=== PATIENT | male | born 1945 | race Caucasian/White ===

== ENCOUNTER 2016-05-15 09:33 | Outpatient (CLI) | payer MEDICARE | END 2016-05-15 09:34 | disposition home or self-care (01) | DX: I48.0 Paroxysmal atrial fibrillation (principal) ==

== ENCOUNTER 2016-05-16 07:36 | Outpatient (CLI) | payer MEDICARE | END 2016-05-16 07:37 | disposition home or self-care (01) | DX: I10 Essential (primary) hypertension (principal); E78.5 Hyperlipidemia, unspecified; E11.9 Type 2 diabetes mellitus without complications ==

== ENCOUNTER 2016-06-19 12:36 | Outpatient (CLI) | payer MEDICARE | END 2016-06-19 12:37 | disposition home or self-care (01) | DX: I48.0 Paroxysmal atrial fibrillation (principal) ==

== ENCOUNTER 2016-07-31 12:39 | Outpatient (CLI) | payer MEDICARE | END 2016-07-31 12:40 | disposition home or self-care (01) | DX: I48.0 Paroxysmal atrial fibrillation (principal) ==

== ENCOUNTER 2016-08-07 08:43 | Outpatient (CLI) | payer MEDICARE | END 2016-08-07 08:44 | disposition home or self-care (01) | DX: E11.9 Type 2 diabetes mellitus without complications (principal); E66.01 Morbid (severe) obesity due to excess calories; I10 Essential (primary) hypertension; E78.5 Hyperlipidemia, unspecified; I48.0 Paroxysmal atrial fibrillation ==

== ENCOUNTER 2016-09-11 12:45 | Outpatient (CLI) | payer MEDICARE | END 2016-09-11 12:46 | disposition home or self-care (01) | DX: I48.0 Paroxysmal atrial fibrillation (principal) ==

== ENCOUNTER 2016-09-19 08:46 | Outpatient (CLI) | payer MEDICARE | END 2016-09-19 08:47 | disposition home or self-care (01) | LOC: LAB.F 08:46 | PROVIDERS: ATTEND Family Medicine | DX: I48.0 Paroxysmal atrial fibrillation (principal) | CPT/HCPCS: 85610 ==

== ENCOUNTER 2016-10-08 12:43 | Outpatient (CLI) | payer MEDICARE | END 2016-10-08 12:44 | disposition home or self-care (01) | LOC: LAB.F 12:43 | PROVIDERS: ATTEND Family Medicine | DX: I48.0 Paroxysmal atrial fibrillation (principal) | CPT/HCPCS: 85610 ==

== ENCOUNTER 2016-10-22 12:53 | Outpatient (CLI) | payer MEDICARE | END 2016-10-22 12:54 | disposition home or self-care (01) | LOC: LAB.F 12:53 | PROVIDERS: ATTEND Family Medicine | DX: I48.0 Paroxysmal atrial fibrillation (principal) | CPT/HCPCS: 85610 ==

== ENCOUNTER 2016-11-04 08:48 | Outpatient (CLI) | payer MEDICARE | END 2016-11-04 08:49 | disposition home or self-care (01) | LOC: LAB.F 08:48 | PROVIDERS: ATTEND Family Medicine | DX: I48.0 Paroxysmal atrial fibrillation (principal) | CPT/HCPCS: 85610 ==

== ENCOUNTER 2016-11-05 07:11 | Outpatient (CLI) | payer MEDICARE ==
[2016-11-05 12:04] LABS: ALBUMIN/GLOBULIN RATIO 1.3 (1.0-2.2); BILIRUBIN,TOTAL 0.8 mg/dL (0.2-1.0); BUN - BLOOD UREA NITROGEN 16 mg/dL (6-20); CALCIUM 9.2 mg/dL (8.5-10.3); CARBON DIOXIDE - CO2 27 mmol/L (21-32); CHLORIDE 102 mmol/L (101-111); CHOL/HDL RATIO 4.4 (<5.0); CHOLESTEROL 120 mg/dL; CREATININE 1.1 mg/dL (0.6-1.2); GFR - MDRD 66 (>89); GLUCOSE 105 mg/dL (70-100); HDL CHOLESTEROL 27 mg/dL; LDL/HDL RATIO 2.5 (<3.6); POTASSIUM 4.2 mmol/L (3.5-5.0); SODIUM 137 mmol/L (135-145); TOTAL PROTEIN 6.9 g/dL (6.7-8.2); TRIGLYCERIDES 123 mg/dL; VLDL CHOLESTEROL 25 mg/dL
[2016-11-05 12:14] LABS: HEMOGLOBIN A1C 0.9 g/dL
== END 2016-11-05 07:12 | disposition home or self-care (01) ==
LOC: LAB.F 07:11
PROVIDERS: ATTEND Family Medicine
DX: E11.9 Type 2 diabetes mellitus without complications (principal); I48.0 Paroxysmal atrial fibrillation; I10 Essential (primary) hypertension; E78.5 Hyperlipidemia, unspecified
CPT/HCPCS: 36415; 80053; 80061; 82043; 83036

== ENCOUNTER 2016-12-04 07:12 | Outpatient (CLI) | payer MEDICARE | END 2016-12-04 07:13 | disposition home or self-care (01) | LOC: LAB.F 07:12 | PROVIDERS: ATTEND Family Medicine | DX: I48.0 Paroxysmal atrial fibrillation (principal) | CPT/HCPCS: 85610 ==

== ENCOUNTER 2016-12-16 09:17 | Outpatient (CLI) | payer MEDICARE | END 2016-12-16 09:18 | disposition home or self-care (01) | LOC: LAB.F 09:17 | PROVIDERS: ATTEND Family Medicine | DX: I48.0 Paroxysmal atrial fibrillation (principal) | CPT/HCPCS: 85610 ==

== ENCOUNTER 2017-01-29 12:34 | Outpatient (CLI) | payer MEDICARE | END 2017-01-29 12:35 | disposition home or self-care (01) | LOC: LAB.F 12:34 | PROVIDERS: ATTEND Family Medicine | DX: I48.0 Paroxysmal atrial fibrillation (principal) | CPT/HCPCS: 85610 ==

== ENCOUNTER 2017-02-04 07:07 | Outpatient (CLI) | payer MEDICARE ==
[2017-02-04 12:30] LABS: CALCIUM 9.4 mg/dL (8.5-10.3); CREATININE 1.1 mg/dL (0.6-1.2); POTASSIUM 3.8 mmol/L (3.5-5.0)
[2017-02-04 12:57] LABS: HEMOGLOBIN A1C 0.96 g/dL
== END 2017-02-04 07:08 | disposition home or self-care (01) ==
LOC: LAB.F 07:07
PROVIDERS: ATTEND Family Medicine
DX: I48.0 Paroxysmal atrial fibrillation (principal); E11.9 Type 2 diabetes mellitus without complications; Z79.01 Long term (current) use of anticoagulants; I10 Essential (primary) hypertension; E78.5 Hyperlipidemia, unspecified
CPT/HCPCS: 36415; 80048; 83036

== ENCOUNTER 2017-03-06 10:36 | Outpatient (CLI) | payer MEDICARE | END 2017-03-06 10:37 | disposition home or self-care (01) | LOC: LAB.F 10:36 | PROVIDERS: ATTEND Family Medicine | DX: I48.0 Paroxysmal atrial fibrillation (principal) | CPT/HCPCS: 85610 ==

== ENCOUNTER 2017-04-17 10:39 | Outpatient (CLI) | payer MEDICARE | END 2017-04-17 10:40 | disposition home or self-care (01) | LOC: LAB.F 10:39 | PROVIDERS: ATTEND Family Medicine | DX: I48.0 Paroxysmal atrial fibrillation (principal) | CPT/HCPCS: 85610 ==

== ENCOUNTER 2017-04-24 09:27 | Outpatient (CLI) | payer MEDICARE | END 2017-04-24 09:28 | disposition home or self-care (01) | LOC: LAB.F 09:27 | PROVIDERS: ATTEND Family Medicine | DX: I48.0 Paroxysmal atrial fibrillation (principal) | CPT/HCPCS: 85610 ==

== ENCOUNTER 2017-05-07 09:31 | Outpatient (CLI) | payer MEDICARE | END 2017-05-07 09:32 | disposition home or self-care (01) | LOC: LAB.F 09:31 | PROVIDERS: ATTEND Family Medicine | DX: I48.0 Paroxysmal atrial fibrillation (principal) | CPT/HCPCS: 85610 ==

== ENCOUNTER 2017-05-14 09:38 | Outpatient (CLI) | payer MEDICARE ==
[2017-05-14 17:43] LABS: CALCIUM 9.2 mg/dL (8.5-10.3)
[2017-05-14 17:52] LABS: HB2 TOTAL 17.5 g/dL; HEMOGLOBIN A1C 0.94 g/dL; HEMOGLOBIN A1C % 7.1 % (4.6-6.2)
== END 2017-05-14 09:39 | disposition home or self-care (01) ==
LOC: LAB.F 09:38
PROVIDERS: ATTEND Family Medicine
DX: I48.0 Paroxysmal atrial fibrillation (principal); E11.9 Type 2 diabetes mellitus without complications
CPT/HCPCS: 36415; 80048; 83036

== ENCOUNTER 2017-05-18 09:15 | Outpatient (CLI) | payer MEDICARE | END 2017-05-18 09:16 | disposition home or self-care (01) | LOC: LAB.F 09:15 | PROVIDERS: ATTEND Family Medicine | DX: I48.0 Paroxysmal atrial fibrillation (principal) | CPT/HCPCS: 85610 ==

== ENCOUNTER 2017-06-12 10:00 | Outpatient (CLI) | payer MEDICARE | END 2017-06-12 10:01 | disposition home or self-care (01) | LOC: LAB.F 10:00 | PROVIDERS: ATTEND Family Medicine | DX: I48.0 Paroxysmal atrial fibrillation (principal) | CPT/HCPCS: 85610 ==

== ENCOUNTER 2017-06-26 08:47 | Outpatient (CLI) | payer MEDICARE | END 2017-06-26 08:48 | disposition home or self-care (01) | LOC: LAB.F 08:47 | PROVIDERS: ATTEND Family Medicine | DX: I48.0 Paroxysmal atrial fibrillation (principal) | CPT/HCPCS: 85610 ==

== ENCOUNTER 2017-07-10 09:43 | Outpatient (CLI) | payer MEDICARE | END 2017-07-10 09:44 | disposition home or self-care (01) | LOC: LAB.F 09:43 | PROVIDERS: ATTEND Family Medicine | DX: I48.0 Paroxysmal atrial fibrillation (principal) | CPT/HCPCS: 85610 ==

== ENCOUNTER 2017-07-14 15:10 | Outpatient (CLI) | payer MEDICARE | END 2017-07-14 15:11 | disposition critical access hospital (66) | LOC: EMS 15:10 | PROVIDERS: ATTEND Surgery | DX: R06.00 Dyspnea, unspecified (principal) | CPT/HCPCS: A0425; A0427 ==

== ENCOUNTER 2017-07-14 16:03 | Emergency (ER) | payer MEDICARE ==
[2017-07-14] MEDS ORDERED: NITROGLYCERIN 2% PASTE TOP STA (16:16)
--- NOTE | 2017-07-14 16:26 | ED Physician Documentation ---
PD HPI DYSPNEA - Stated complaint Stated Complaint: AFIB - History obtained from History obtained from: Patient, EMS - History of Present Illness Timing - onset: Last night Timing - onset during: Sleep, Rest Timing - duration: Hours (12-15 hours - he says he felt okay breathing yesterday and developed cough and trouble breathing overnight, worse today.) Timing - details: Abrupt onset, Still present Inciting event(s): No: Out of meds, URI, Immobilization/travel Improved by: O2, Nitro Associated symptoms: Cough, Bilateral edema (but denies it being much more than usual). No: Fever, Chest pain / discomfort Similar symptoms before: Has not had sx before (denies episodes this severe in the past.) Review of Systems Constitutional: reports: Myalgias. denies: Fever, Chills Nose: reports: Congestion. denies: Rhinorrhea / runny nose Throat: denies: Sore throat Cardiac: reports: Palpitations, Pedal edema (chronic). denies: Chest pain / pressure, Calf pain Respiratory: reports: Dyspnea (today), Cough, Wheezing GI: reports: Nausea, Vomiting, Diarrhea Skin: denies: Rash, Lesions Musculoskeletal: denies: Neck pain, Back pain Neurologic: reports: Generalized weakness. denies: Focal weakness, Numbness, Near syncope, Altered mental status, Headache Endocrine: denies: Weight loss, Easy bruising / bleeding PD PAST MEDICAL HISTORY - Past Medical History Cardiovascular: Congestive heart failure, Atrial fibrillation, Other (no DC) Respiratory: None Neuro: None Endocrine/Autoimmune: None - Present Medications Home Medications: Ambulatory Orders Medication Instructions Recorded Confirmed Atorvastatin Calcium 80 mg PO DAILY 07/14/17 Diltiazem HCl [Diltiazem 24Hr ER] 240 mg PO DAILY 07/14/17 Furosemide [Lasix] 20 mg PO DAILY 07/14/17 Lisinopril 10 mg PO DAILY 07/14/17 Metoprolol Tartrate 50 mg PO DAILY 07/14/17 Tamsulosin HCl [Flomax] 0.4 mg PO DAILY 07/14/17 Warfarin [Coumadin] 7.5 mg PO DAILY 07/14/17 - Allergies Allergies/Adverse Reactions: Allergies Allergy/AdvReac Type Severity Reaction Status Date / Time Penicillins Allergy Unknown Verified 07/14/17 19:55 Sulfa (Sulfonamide Allergy Hives Verified 07/14/17 16:18 Antibiotics) - Family History Family history: reports: Non contributory PD ED PE NORMAL - Vitals Vital signs reviewed: Yes - General General: Alert and oriented X 3, Well developed/nourished, Other (appears tachypneic but able to talk in sentences. Intermittent congested cough. ) - HEENT HEENT: Moist mucous membranes, Pharynx benign - Neck Neck: Supple, no meningeal sign, No adenopathy, No bruit, Other (JVD at 45 degrees) - Cardiac Cardiac: No murmur. No: RRR (fast and irregular c/w atrial fib. ) - Respiratory Respiratory: Other (he has tachypnea and work of breathing). No: Clear bilaterally (diffuse congestion and wheezing. Coarse at bases. ) - Abdomen Abdomen: Soft, Non tender - Back Back: No CVA TTP - Derm Derm: Normal color, Warm and dry - Extremities Extremities: No tenderness to palpate, No calf tenderness / cord, Other (2+ edema in both legs and ankles. ) - Neuro Neuro: Alert and oriented X 3, No motor deficit, Normal speech Eye Opening: Spontaneous Motor: Obeys Commands Verbal: Oriented GCS Score: 15 - Psych Psych: Normal mood, Normal affect Results - Vitals Vitals: Vital Signs - 24 hr 07/14/17 07/14/17 07/14/17 16:05 17:07 17:31 Temperature 36.5 C Heart Rate 135 H 144 H 129 H Respiratory 24 26 H Rate Blood Pressure 144/117 H 120/86 H O2 Saturation 94 97 07/14/17 07/14/17 07/14/17 18:25 18:53 19:41 Temperature Heart Rate 130 H 123 H 127 H Respiratory 99 H 18 34 H Rate Blood Pressure 131/95 H 141/98 H 120/101 H O2 Saturation 97 98 Oxygen O2 Source Non-rebreather mask - EKG (time done) admission Rate: Rate (enter#) (140) Rhythm: Atrial fibrillation QRS: Normal Ischemia: Non specific changes. No: ST elevation c/w ischemia, ST depression - Labs Labs: Laboratory Tests 07/14/17 07/14/17 07/14/17 17:05 17:05 17:05 WBC 14.2 H RBC 6.31 H Hgb 17.4 Hct 54.5 H MCV 86.3 MCH 27.6 MCHC 32.0 RDW 14.4 Plt Count 244 MPV 8.2 Neut # 12.6 H Lymph # 0.7 L Schuyler # 0.8 Eos # 0.1 Baso # 0.0 Absolute Nucleated RBC 0.01 Nucleated RBC % 0.1 PT INR D-Dimer Sodium 132 L Potassium 4.0 Chloride 95 L Carbon Dioxide 25 Anion Gap 12.0 BUN 20 Creatinine 1.1 Estimated GFR (MDRD) 66 L Glucose 213 H Calcium 9.1 Magnesium 1.8 Total Bilirubin 1.1 H AST 24 ALT 39 Alkaline Phosphatase 75 Troponin I 0.25 B-Natriuretic Peptide Total Protein 8.3 H Albumin 4.5 Globulin 3.8 Albumin/Globulin Ratio 1.2 Lipase 10 L 07/14/17 07/14/17 07/14/17 17:05 17:05 17:05 WBC RBC Hgb Hct MCV MCH MCHC RDW Plt Count MPV Neut # Lymph # Schuyler # Eos # Baso # Absolute Nucleated RBC Nucleated RBC % PT 40.0 H INR 3.7 H D-Dimer < 200.0 L Sodium Potassium Chloride Carbon Dioxide Anion Gap BUN Creatinine Estimated GFR (MDRD) Glucose Calcium Magnesium Total Bilirubin AST ALT Alkaline Phosphatase Troponin I B-Natriuretic Peptide 135 H Total Protein Albumin Globulin Albumin/Globulin Ratio Lipase 07/14/17 18:27 WBC RBC Hgb Hct MCV MCH MCHC RDW Plt Count MPV Neut # Lymph # Schuyler # Eos # Baso # Absolute Nucleated RBC Nucleated RBC % PT INR D-Dimer Sodium Potassium Chloride Carbon Dioxide Anion Gap BUN Creatinine Estimated GFR (MDRD) Glucose Calcium Magnesium Total Bilirubin AST ALT Alkaline Phosphatase Troponin I 0.52 H* B-Natriuretic Peptide Total Protein Albumin Globulin Albumin/Globulin Ratio Lipase - Rads (name of study) chest Radiology: Prelim report reviewed, EMP read contemporaneously (CHF appearance) PD MEDICAL DECISION MAKING - ED course Complexity details: considered differential (His breathing did improve with combination of nebulizer which I think helped with some of the secretions and also nitroglycerin topical and sublingual as well as controlling his heart rate with repeated doses of beta blockers metoprolol and is also given Lasix prehospital by EMS. He did have reasonable urine output in the first hour or so here in the hospital. It looked like he might need BiPAP for a while but his breathing improved and subsequently did not need BiPAP. He is also able to be weaned down from a facemask to nasal cannula. His work of breathing improved considerably. His breath sounds are improving. He still is not comfortable laying reclined but is breathing regularly in an upright position. He denied any chest pain at this point. His initial chest x-ray did show significant congestive failure. His BNP was not very elevated suggesting probably not of a long-term progression but more in acute pulmonary edema. His troponin was in the indeterminate range at 0.25 on initial draw. The hospitalist here asked that we repeat it at about 2 hours and that was done and it came back at 0.52. This is still a low amount but given the concern of some muscle fiber injury concurrent with the CHF and fast rate atrial fibrillation that the patient would be better off with cardiology availability. The our hospitalist felt he should be transferred. I talked with the [facility] transfer [facility] and they will arrange appropriate setting. The patient remains in stable condition on nasal cannula with still slightly fast heart rate about 110- 120 fibrillation but he is comfortable at this time.), d/w patient Departure - Departure Disposition: 02 Transfer Acute Care Hosp Clinical Impression: Respiratory distress, Acute pulmonary edema, Elevated troponin, Atrial fibrillation with rapid ventricular response Condition: Stable Record reviewed to determine appropriate education?: Yes
[2017-07-14] MEDS ORDERED: METOPROLOL 5 MG/5 ML VIAL IVP STA ×4 (16:31→18:44)
[2017-07-14] MEDS ORDERED: ALBUTEROL NEB 2.5 MG/3 ML INH STA (16:32)
[2017-07-14 17:10] LABS: BASOPHILS % (AUTO) 0.3 %; EOSINOPHILS # (AUTO) 0.1 10^3/uL (0.0-0.7); EOSINOPHILS % (AUTO) 0.4 %; HGB - HEMOGLOBIN 17.4 g/dL (14.0-18.0); LYMPHOCYTES # (AUTO) 0.7 10^3/uL (1.5-3.5); LYMPHOCYTES % (AUTO) 4.8 %; MEAN CORPUSCULAR HEMOGLOBIN 27.6 pg (27.0-31.0); MEAN CORPUSCULAR VOLUME 86.3 fL (80.0-94.0); MEAN PLATELET VOLUME 8.2 fL (7.4-11.4); MONOCYTES # (AUTO) 0.8 10^3/uL (0.0-1.0); MONOCYTES % (AUTO) 5.5 %; NEUTROPHILS # (AUTO) 12.6 10^3/uL (1.5-6.6); PLT - PLATELET COUNT 244 10^3/uL (130-450); RED BLOOD COUNT 6.31 10^6/uL (4.70-6.10); RED CELL DISTRIBUTION WIDTH 14.4 % (12.0-15.0); WHITE BLOOD COUNT 14.2 x10^3/uL (4.8-10.8)
[2017-07-14 17:25] LABS: ALBUMIN 4.5 g/dL (3.2-5.5); ALBUMIN/GLOBULIN RATIO 1.2 (1.0-2.2); BILIRUBIN,TOTAL 1.1 mg/dL (0.2-1.0); CALCIUM 9.1 mg/dL (8.5-10.3); CREATININE 1.1 mg/dL (0.6-1.2); MAGNESIUM 1.8 mg/dL (1.7-2.8); TOTAL PROTEIN 8.3 g/dL (6.7-8.2)
--- NOTE | 2017-07-14 18:01 | XRAY Report ---
EXAM: CHEST RADIOGRAPHY EXAM DATE: 07/14/2017 05:34 PM. CLINICAL HISTORY: Congestion. Dyspnea. COMPARISON: 01/25/2012. TECHNIQUE: 1 view. FINDINGS: Lungs/Pleura: Diffuse haziness, worse left perihilar, with mild interstitial prominence peripherally in the bases. No focal opacities evident. No pleural effusion. No pneumothorax. Mediastinum: Large heart. Other: No bony abnormality noted. IMPRESSION: Large heart with diffuse haziness and basilar predominant interstitial prominence concern ing for CHF. [facility] Referring Provider Line: [phone] SITE ID: [id number]
[2017-07-14] MEDS ORDERED: NITROGLYCERIN SL 0.4 MG TABLET SL STA (19:51)
[2017-07-14] MEDS ORDERED: MAG HYDROX/AL HYDROX/SIMETH 30 ML UDC PO STA (19:51)
[2017-07-14] MEDS ORDERED: ASPIRIN CHEW 81 MG TABLET PO STA (19:52)
[2017-07-14 20:35] LABS: INR 3.7 (0.8-1.2)
[2017-07-14] MEDS ORDERED: diltiaZEM INJ 5 MG/ML VIAL IVP STA (20:37)
[2017-07-14] MEDS ORDERED: FUROSEMIDE 40 MG/4 ML VIAL IVP STA (21:07)
[2017-07-14 23:27] VITALS: BP 138/105
== END 2017-07-14 23:18 | disposition short-term general hospital (02) ==
LOC: EDUNIT# → ED 16:03
DX: I48.91 Unspecified atrial fibrillation (principal); R06.03 Acute respiratory distress; J81.1 Chronic pulmonary edema; R79.89 Other specified abnormal findings of blood chemistry; Z79.01 Long term (current) use of anticoagulants
CPT/HCPCS: 36415; 71045; 80053; 83690; 83735; 83880; 84484; 85025; 85379; 85610; 93005; 94640; 96374; 96375; 96376; 99285; A9270; 99284

== ENCOUNTER 2017-08-27 10:36 | Outpatient (CLI) | payer MEDICARE | END 2017-08-27 10:37 | disposition home or self-care (01) | LOC: LAB.F 10:36 | PROVIDERS: ATTEND Family Medicine | DX: I48.0 Paroxysmal atrial fibrillation (principal) | CPT/HCPCS: 85610 ==

== ENCOUNTER 2017-09-14 09:10 | Outpatient (CLI) | payer MEDICARE | END 2017-09-14 09:11 | disposition home or self-care (01) | LOC: LAB.F 09:10 | PROVIDERS: ATTEND Family Medicine | DX: I48.0 Paroxysmal atrial fibrillation (principal) | CPT/HCPCS: 85610 ==

== ENCOUNTER 2017-09-28 08:48 | Outpatient (CLI) | payer MEDICARE | END 2017-09-28 08:49 | disposition home or self-care (01) | LOC: LAB.F 08:48 | PROVIDERS: ATTEND Family Medicine | DX: I48.0 Paroxysmal atrial fibrillation (principal) | CPT/HCPCS: 85610 ==

== ENCOUNTER 2017-10-27 09:17 | Outpatient (CLI) | payer MEDICARE | END 2017-10-27 09:18 | disposition home or self-care (01) | LOC: LAB.F 09:17 | PROVIDERS: ATTEND Family Medicine | DX: I48.0 Paroxysmal atrial fibrillation (principal) | CPT/HCPCS: 85610 ==